=== PATIENT | male | born 1955 | race Caucasian/White ===

== ENCOUNTER 2018-07-02 00:48 | Emergency (ER) | payer MEDICAID ==
[~2018-07-02] VITALS: Ht 172.7 cm; Wt 114.0 kg
[2018-07-02 00:51] VITALS: BP 145/89
[2018-07-02] MEDS ORDERED: SODIUM CHLORIDE 0.9% 1,000 ML IV ONE (02:27)
[2018-07-02] MEDS ORDERED: ONDANSETRON HCL 4MG/2ML INJ IV ONE (02:30)
[2018-07-02 03:06] LABS: BASOPHILS % 0.5 % (0.0-2.0); EOSINOPHILS % 0.8 % (0.0-5.0); HEMATOCRIT. 42.1 % (42.0-52.0); HEMOGLOBIN. 14.1 g/dL (14.0-18.0); LYMPHOCYTES % 8.1 % (20.0-50.0); MEAN CORPUSCULAR HEMOGLOBIN 31.6 pg (28.0-32.0); MEAN CORPUSCULAR VOLUME 94.5 fL (80.0-94.0); MEAN PLATELET VOLUME 8.2 fl (7.4-10.4); MONOCYTES % 4.2 % (2.0-8.0); NEUTROPHILS % 86.4 % (40.0-76.0); PLATELET 231 x1000/uL (130-400); RED BLOOD CELL COUNT 4.45 mill/uL (4.7-6.1); RED CELL DISTRIBUTION WIDTH 13.5 % (11.6-14.6)
[2018-07-02 03:12] LABS: CHLORIDE 110 mEq/L (98-107)
[2018-07-02 03:17] LABS: ETHANOL BLOOD 212 mg/dL
== END 2018-07-02 04:18 | disposition left against medical advice (07) ==
LOC: ER 00:48
DX: F10.229 Alcohol dependence with intoxication, unspecified (principal); E86.0 Dehydration; I10 Essential (primary) hypertension; E78.00 Pure hypercholesterolemia, unspecified; F17.210 Nicotine dependence, cigarettes, uncomplicated; D72.829 Elevated white blood cell count, unspecified; Y90.9 Presence of alcohol in blood, level not specified; Z78.1 Physical restraint status
CPT/HCPCS: 36415; 80053; 80307; 80329; 85025; 87186; 96361; 96374; 99283; J7030; Z7610; J2405